=== PATIENT | male | born 2000 | race Caucasian/White ===

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

== ENCOUNTER 2020-09-21 14:41 | Emergency (ER) | payer BC ==
[2020-09-21] MEDS ORDERED: LIDOCAINE 1%/EPI 1:100000 (50 ML MULTI DOSE VIAL) INF ONE (14:45)
[2020-09-21 14:52] VITALS: BP 142/97; PULSE 88; TEMP 98.6; BMI 21.2
[2020-09-21] MEDS ORDERED: LIDO 2%/EPI 1:200000 PRESRVFRE (20 ML SDVIAL) ONE (14:54)
== END 2020-09-21 15:25 | disposition home or self-care (01) ==
LOC: FER 14:41
DX: S00.452A Superficial foreign body of left ear, initial encounter (principal)
CPT/HCPCS: 99283-25

== ENCOUNTER 2021-04-04 18:09 | Emergency (ER) | payer BC ==
[2021-04-04 18:19] VITALS: BP 134/102; PULSE 76; TEMP 99; BMI 20.7
[2021-04-05 14:08] LABS: SARS-CoV-2 NAA Not Detected (Not Detected)
== END 2021-04-04 20:46 | disposition home or self-care (01) ==
LOC: FER 18:09
DX: R42 Dizziness and giddiness (principal); R51.9 Headache, unspecified
CPT/HCPCS: 70450-TC; 99284-25; C9803; U0003; U0005

== ENCOUNTER 2021-12-20 18:09 | Emergency (ER) | payer BC ==
[2021-12-20] MEDS ORDERED: ALBUTEROL SO4 0.083% IH SOL 2.5 MG/3 ML VIAL.NEB. NEB ONE (18:16)
[2021-12-20] MEDS ORDERED: SODIUM CHLORIDE 1,000 ML IV STA (18:16)
[2021-12-20] MEDS ORDERED: methylPREDNISolone NA SUCC 125 MG/2 ML VIAL IVPB ONE (18:16)
[2021-12-20 18:43] VITALS: BP 132/72; PULSE 106; TEMP 98.1; BMI 24.3
== END 2021-12-20 19:12 | disposition home or self-care (01) ==
LOC: FER 18:09
PROC: 3E0F7GC Introduction of Other Therapeutic Substance into Respiratory Tract, Via Natural or Artificial Opening (ICD-10-PCS; principal; 2021-12-20)
PROC: 3E033GC Introduction of Other Therapeutic Substance into Peripheral Vein, Percutaneous Approach (ICD-10-PCS; 2021-12-20)
PROC: 3E0337Z Introduction of Electrolytic and Water Balance Substance into Peripheral Vein, Percutaneous Approach (ICD-10-PCS; 2021-12-20)
DX: T78.40XA Allergy, unspecified, initial encounter (principal)
CPT/HCPCS: 99284-25

== ENCOUNTER 2023-01-15 06:15 | Emergency (ER) | payer BC ==
[2023-01-15 06:28] VITALS: RESP 16; BMI 24.4
[2023-01-15 06:32] VITALS: BP 147/99; PULSE 60; TEMP 98.7
[2023-01-15] MEDS ORDERED: ALBUTEROL SO4 2.5/IPRATROPIUM 0.5 INH SOL 3 ML VIAL.NEB. NEB ONE (06:40)
[2023-01-15] MEDS: ALBUTEROL SO4 2.5/IPRATROPIUM 0.5 INH SOL 3 ML VIAL.NEB. NEB SCH ×3 (06:40→07:08)
== END 2023-01-15 08:39 | disposition home or self-care (01) ==
LOC: FER 06:15
PROC: 3E0F7GC Introduction of Other Therapeutic Substance into Respiratory Tract, Via Natural or Artificial Opening (ICD-10-PCS; principal; 2023-01-15)
DX: R06.2 Wheezing (principal)
CPT/HCPCS: 99285-25

== ENCOUNTER 2023-07-22 08:16 | Emergency (ER) | payer BC ==
[2023-07-22] MEDS ORDERED: DIPHTH,PERTUSS(ACELL),TET 0.5 ML DISP.SYRIN IM ONE ×2 (08:36→08:41)
[2023-07-22 08:39] VITALS: BP 152/102; PULSE 89; RESP 16; TEMP 98.2; BMI 25.1
== END 2023-07-22 09:04 | disposition home or self-care (01) ==
LOC: FER 08:16
PROC: 0HQBXZZ Repair Right Upper Arm Skin, External Approach (ICD-10-PCS; principal; 2023-07-22)
PROC: 3E0234Z Introduction of Serum, Toxoid and Vaccine into Muscle, Percutaneous Approach (ICD-10-PCS; 2023-07-22)
DX: S41.111A Laceration without foreign body of right upper arm, initial encounter (principal); S41.112A Laceration without foreign body of left upper arm, initial encounter; S91.311A Laceration without foreign body, right foot, initial encounter; S91.312A Laceration without foreign body, left foot, initial encounter; R42 Dizziness and giddiness; W23.1XXA Caught, crushed, jammed, or pinched between stationary objects, initial encounter; Y93.89 Activity, other specified; Y92.009 Unspecified place in unspecified non-institutional (private) residence as the place of occurrence of the external cause
CPT/HCPCS: 90715; 99282-25

== ENCOUNTER 2023-10-08 15:52 | Emergency (ER) | payer BC ==
[2023-10-08 16:21] VITALS: BP 151/81; PULSE 83; RESP 20; TEMP 98.2; BMI 22.1
[2023-10-08] MEDS ORDERED: cefTRIAXone SODIUM 1 GM VIAL ONE (17:15)
[2023-10-08] MEDS ORDERED: AZITHROMYCIN 500 MG TABLET ONE (17:15)
[2023-10-08] MEDS: AZITHROMYCIN 250 MG TABLET PO ONE (17:16)
== END 2023-10-08 17:27 | disposition home or self-care (01) ==
LOC: FER 15:52
DX: N50.811 Right testicular pain (principal); A74.9 Chlamydial infection, unspecified
CPT/HCPCS: 36415; 76870-TC; 81003; 87491; 87591; 87661; 99284-25